=== PATIENT | female | born 1985 | race Two or more races ===

== ENCOUNTER 2021-05-29 14:17 | Emergency (ER) | payer MEDICAID ==
[~2021-05-29] VITALS: Ht 160 cm; Wt 81.6 kg
[2021-05-29 15:39] VITALS: BP 102/66
[2021-05-29] MEDS ORDERED: KETOROLAC TROMETH 60MG/2ML VIAL IM ONE (16:45)
[2021-05-29 17:29] LABS: Basophils # (auto) 0.1 10 ^3/uL (0-0.2); Basophils % (auto) 0.8 % (0.0-2.0); Eosinophils # (auto) 0.2 10 ^3/uL (0-0.8); Eosinophils % (auto) 2.2 % (0.0-7.0); Hematocrit 41.4 % (36.0-46.0); Hemoglobin 14.7 g/dL (12.2-16.2); Lymphocytes # (auto) 2.6 10 ^3/uL (0.4-5.4); Lymphocytes % (auto) 29.8 % (10.0-50.0); Mean Corpuscular Hemoglobin 33.7 pg (28.0-32.0); Mean Corpuscular Hgb Conc. 35.4 g/dL (32.0-36.0); Mean Corpuscular Volume 95.1 fL (80.0-100.0); Monocytes # (auto) 1.2 10 ^3/uL (0-1.3); Monocytes % (auto) 13.7 % (0.0-12.0); Neutrophils # (auto) 4.7 10 ^3/uL (1.6-8.6); Neutrophils % (auto) 53.5 % (37.0-80.0); Platelet Count (auto) 274 10^3/uL (140-450); Red Blood Cells 4.36 10^6/uL (4.0-5.20); Red Cell Distribution Width 12.8 % (11.8-14.3); White Blood Cell 8.8 10^3/uL (4.4-10.8)
[2021-05-29 17:41] LABS: Albumin 3.6 g/dL (3.4-5.0); Calcium 8.5 mg/dL (8.5-10.1); Potassium 3.9 mmol/L (3.5-5.1)
[2021-05-29 17:44] LABS: BUN/Creatinine Ratio 13.5; Bilirubin, Total 0.3 mg/dL (0.2-1.0); Total Protein 6.7 g/dL (6.4-8.2)
== END 2021-05-29 18:16 | disposition home or self-care (01) ==
LOC: ER 14:17
DX: J32.9 Chronic sinusitis, unspecified (principal); M54.9 Dorsalgia, unspecified; R42 Dizziness and giddiness
CPT/HCPCS: 36415; 80053; 85025; 85049; 96372; 99283; J1885

== ENCOUNTER 2024-09-04 12:30 | Emergency (ER) | payer MEDICAID ==
[~2024-09-04] VITALS: Ht 162.6 cm; Wt 95.5 kg
[2024-09-04 14:00] VITALS: BP 101/69; PULSE 101; RESP 16; O2SAT 97
[2024-09-04] MEDS ORDERED: AUG875T PO (14:57)
[2024-09-04] MEDS ORDERED: LIDO2SOL26 MT (14:57)
== END 2024-09-04 14:59 | disposition home or self-care (01) ==
LOC: ER 12:33
DX: H66.93 Otitis media, unspecified, bilateral (principal); J03.90 Acute tonsillitis, unspecified; Z98.890 Other specified postprocedural states; Z79.899 Other long term (current) drug therapy
CPT/HCPCS: 71045

== ENCOUNTER 2024-09-21 12:33 | Emergency (ER) | payer MEDICAID ==
[~2024-09-21] VITALS: Ht 162.6 cm; Wt 95.1 kg
[~2024-09-21 12:33] MED LIST: AUG875T PO; LIDO2SOL26 MT
[2024-09-21 13:15] LABS: Basophils # (auto) 0.1 10 ^3/uL (0-0.2); Eosinophils # (auto) 0.1 10 ^3/uL (0-0.8); Eosinophils % (auto) 2.2 % (0.0-7.0); Hematocrit 43.2 % (36.0-46.0); Hemoglobin 14.5 g/dL (12.2-16.2); Lymphocytes # (auto) 2.7 10 ^3/uL (0.4-5.4); Lymphocytes % (auto) 44.2 % (10.0-50.0); Mean Corpuscular Hemoglobin 31.8 pg (28.0-32.0); Mean Corpuscular Hgb Conc. 33.6 g/dL (32.0-36.0); Mean Corpuscular Volume 94.5 fL (80.0-100.0); Monocytes # (auto) 0.6 10 ^3/uL (0-1.3); Neutrophils # (auto) 2.6 10 ^3/uL (1.6-8.6); Neutrophils % (auto) 42.6 % (37.0-80.0); Nucleated Red Blood Cells % 0.1 %; Platelet Count (auto) 357 10^3/uL (140-450); Red Blood Cells 4.58 10^6/uL (4.0-5.20); Red Cell Distribution Width 13.3 % (11.8-14.3)
[2024-09-21 13:17] LABS: Chloride 109 mmol/L (98-107); Potassium 3.9 mmol/L (3.5-5.1); Sodium 139 mmol/L (136-145)
[2024-09-21 13:18] LABS: Anion Gap 7 (5-15); Carbon Dioxide 23 mmol/L (20-31)
[2024-09-21 13:19] LABS: Calcium 9.6 mg/dL (8.7-10.4)
[2024-09-21 13:23] LABS: Glucose 89 mg/dL (74-106)
[2024-09-21 13:24] LABS: BUN/Creatinine Ratio 15.9 (10.0-20.0); Blood Urea Nitrogen 11 mg/dL (9-23)
[2024-09-21 13:31] LABS: Urine Bacteria None Seen /hpf (None Seen)
[2024-09-21 13:49] LABS: Urine Blood 1+ /uL (Negative); Urine Clarity Clear (Clear); Urine Color Yellow (Yellow); Urine Mucus FEW (None Seen); Urine Protein, UAD Negative (Negative); Urine Specific Gravity 1.023 (1.001-1.035); Urine Urobilinogen Normal (Negative); Urine WBC <1 /hpf (0 - 5)
[2024-09-21 20:02] VITALS: BP 120/79; PULSE 99; RESP 18; TEMP 98.4; O2SAT 97
== END 2024-09-21 21:51 | disposition left against medical advice (07) ==
LOC: ER 12:33
DX: G45.9 Transient cerebral ischemic attack, unspecified (principal); Z98.51 Tubal ligation status
CPT/HCPCS: 36415; 80048; 81001; 85025; 99291

== ENCOUNTER 2025-06-20 21:31 | Emergency (ER) | payer MEDICAID ==
[~2025-06-20] VITALS: Ht 162.6 cm; Wt 95.8 kg
[2025-06-20] MEDS: KETOROLAC TROMETH 60MG/2ML VIAL IM ONE (22:00)
--- NOTE | 2025-06-20 22:08 | ED.PDOC ---
Musculoskeletal HPI Comments This patient is a significantly morbidly obese 40 year-old female who presents to the ED with a chief complaint of L arm inflammation with associated tingling, numbness, and headache for the past few days. Patient reports additional pain to bilateral arms as of X2 days ago. Patient has no further complaints at this time and otherwise denies further associated symptoms of dizziness, N/V, fatigue, fever, or chills. Vital signs were stable on arrival. Chief Complaint: Upper Extremity Time Seen by MD: 22:04 Primary Care Provider: Sunshine Navarrete Notes: Nurses Notes, Medications, Allergies Allergies: Coded Allergies: No Known Drug Allergy (Verified Allergy, Unknown, 05/29/21) Home Meds Active Scripts Gabapentin (Gabapentin) 300 Mg Cap, 1 CAP PO Q6HP PRN, #20 CAP 0 Refills Prov:LILIBETH CANNON PAC 06/21/25 Ibuprofen Micronized (Ibuprofen) 800 Mg Tab, 800 MG PO Q8HP PRN, #20 TAB Prov:LILIBETH CANNON PAC 06/21/25 Lidocaine HCl (Mouth-Throat) (Lidocaine HCl Viscous) 2 % Cornelia, 10 ML MT TID, #100 ML Prov:RUPINDER PEREZ 09/04/24 Amoxicillin & Pot Clavulanate (AUGMENTIN TABLET) 875 Mg Tb, 875 MG PO BID for 10 Days, #20 TAB Prov:RUPINDER PEREZ 09/04/24 Information Source: Patient Mode of Arrival: Ambulatory Location: Left Timing: Days Prehospital treatment: None Severity: Moderate Able to Move Extremity: Yes Bear Weight: Fully Pain: Moderate Hand Dominance: Right Mechanism: Unknown Circumstances: Spontaneous Onset of Symptoms: Spontaneous Symptoms: Swelling, Pain DVT Risk Factors: NONE Associated signs and symptoms: Other (L arm Inflimmation ) Past Medical History PAST MEDICAL HISTORY: Denies Surgical History: Tubal Ligation IT PROGRAM ENGAGEMENT DIRECTOR History: No Pertinent IT PROGRAM ENGAGEMENT DIRECTOR History Family History Family History: Reviewed,noncontributory to illness Social History Smoker: Non-Smoker Alcohol: Denies ETOH Use Drugs: Denies Drug Use Lives In: Home Constitutional: denies: chills, diaphoresis, fatigue, fever, malaise, sweats, weakness, others EENTM: denies: blurred vision, double vision, ear bleeding, ear discharge, ear drainage, ear pain, ear ringing, eye pain, eye redness, hearing loss, mouth pain, mouth swelling, nasal discharge, nose bleeding, nose congestion, nose pain, photophobia, tearing, throat pain, throat swelling, voice changes, others Respiratory: denies: cough, hemoptysis, orthopnea, SOB at rest, shortness of breath, SOB with excertion, stridor, wheezing, others Cardiovascular: denies: chest pain, dizzy spells, diaphoresis, Dyspnea on exertion, edema, irregular heart beat, left arm pain, lightheadedness, palpitati ons, PND, syncope, others Gastrointestinal: denies: abdomen distended, abdominal pain, blood streaked bowels, constipated, diarrhea, dysphagia, difficulty swallowing, hematemesis, melena, nausea, poor appetite, poor fluid intake, rectal bleeding, rectal pain, vomiting, others Genitourinary: denies: abnormal vagina bleeding, burning, dyspareunia, dysuria, flank pain, frequency, hematuria, incontinence, pain, , vagina discharge, urgency, others Neurological: reports: headache, numbness, tingling (Left hand and part of the left arm), others (L arm Inflimmation ); denies: dizziness, fainting, left sided numbness, left sided weakness, paresthesia, pre-existing deficit, right sided numbness, right sided weakness, seizure, speech problems, tremors, weakness Musculoskeletal: denies: back pain, gout, joint pain, joint swelling, muscle pain, muscle stiffness, neck pain, others Integumetry: denies: bruises, change in color, change in hair/nails, dryness, laceration, lesions, lumps, rash, wounds, others Allergic/Immunocompromised: denies: Difficulty Healing, Frequent Infections, Hives, Itching, others Hematologic/Lymphatic: denies: anemia, blood clots, easy bleeding, easy bruising, swollen glands, others Endocrine: denies: excessive hunger, excessive sweating, excessive thirst, excessive urination, flushing, intolerance to cold, intolerance to heat, unexplained weight gain, unexplained weight loss, others Psychiatric: denies: anxiety, bipolar disorder, depression, hopeless, panic disorder, schizophrenia, sleepless, suicidal, others All Other Systems: Reviewed and Negative Physical Exam General Appearance: Moderate Distress ([id number] her neuropathic pain concerns.), Obese HEENT: Normal ENT Inspection, Pharynx Normal, TMs Normal Neck: Full Range of Motion, Non-Tender, Normal, Normal Inspection Respiratory: Chest Non-Tender, Lungs Clear, No Accessory Muscle Use, No R espiratory Distress, Normal Breath Sounds Cardiovascular: No Edema, No JVD, No Murmur, No Gallop, Normal Peripheral Pulses, Regular Rate/Rhythm Breast Exam: Deferred Gastrointestinal: No Organomegaly, Non Tender, No Pulsatile Mass, Normal Bowel Sounds, Soft Genitalia: Deferred Pelvic: Deferred Rectal: Deferred Extremities: Other (Musculoskeletal evaluation was unremarkable. No signs of trauma. Full range of motion displayed. Distal neurovascularly intact.) Neurologic: Alert, No Motor Deficits, Normal Affect, Normal Mood, No Sensory Deficits Cerebellar Function: NOT DONE Reflexes: NOT DONE Skin: Dry, Normal Color, Warm Lymphatic: No Adenopathy Was a procedure done? Was a procedure done?: No Differential Diagnosis EXT Differential Diagnosis: Fracture, Sprain, Contusion, Strain, Arthritis, Other (Peripheral neuropathy, degenerative disc disease of the cervical spine, cervical radiculopathy) X-Ray, Labs, Meds, VS Vital Signs Date Time Temp Pulse Resp B/P (MAP) Pulse Ox O2 Delivery O2 Flow Rate FiO2 06/20/25 22:28 98.1 77 18 127/82 (97) 95 98.1 Lab Test 06/20/25 22:37 06/20/25 22:10 Range/Units Urine Color Light-yellow Yellow Urine Clarity Turbid H Clear Urine pH 6.5 5.0-9.0 Urine Specific [place] 1.028 1.001-1.035 Urine Protein Trace H Negative Urine Ketones Negative Negative Urine Blood Negative Negative /uL Urine Nitrite Negative Negative Urine Bilirubin Negative Negative Urine Urobilinogen Normal Negative mg/dL Urine Leukocyte Esterase Negative Negative /uL Urine RBC 3 0 - 4 /hpf Urine Microscopic WBC 3 0-5 /HPF Urine Squamous Epithelial Cells Mod <5 /hpf Urine Bacteria Few H None Seen /hpf Urine Mucus Few None Seen Urine Glucose Normal Normal mg/dL White Blood Count 7.2 4.4-10.8 10^3/uL Red Blood Count 4.44 4.0-5.20 10^6/uL Hemoglobin 14.2 12.2-16.2 g/dL Hematocrit 41.0 36.0-46.0 % Mean Corpuscular Volume 92.2 80.0-100.0 fL Mean Corpuscular Hemoglobin 32.0 28.0-32.0 pg Mean Corpuscular Hemoglobin Concent 34.7 32.0-36.0 g/dL Red Cell Distribution Width 13.3 11.8-14.3 % Platelet Count 342 140-450 10^3/uL Mean Platelet Volume 7.5 6.9-10.8 fL Neutrophils (%) (Auto) 44.2 37.0-80.0 % Lymphocytes (%) (Auto) 43.1 10.0-50.0 % Monocytes (%) (Auto) 8.8 0.0-12.0 % Eosinophils (%) (Auto) 2.8 0.0-7.0 % Basophils (%) (Auto) 1.1 0.0-2.0 % Neutrophils # (Auto) 3.2 1.6-8.6 10 ^3/uL Lymphocytes # (Auto) 3.1 0.4-5.4 10 ^3/uL Monocytes # (Auto) 0.6 0-1.3 10 ^3/uL Eosinophils # (Auto) 0.2 0-0.8 10 ^3/uL Basophils # (Auto) 0.1 0-0.2 10 ^3/uL Nucleated Red Blood Cells 0.1 % Sodium Level 142 136-145 mmol/L Potassium Level 3.7 3.5-5.1 mmol/L Chloride Level 108 H 98-107 mmol/L Carbon Dioxide Level 24 20-31 mmol/L Anion Gap 10 5-15 Blood Urea Nitrogen 8 L 9-23 mg/dL Creatinine 0.72 0.550-1.02 mg/dL Glomerular Filtration Rate Calc 107 >90 mL/min BUN/Creatinine Ratio 11.1 10.0-20.0 Serum Glucose 89 74-106 mg/dL Calcium Level 9.2 8.7-10.4 mg/dL Lipase 47 12-53 U/L Current Medications Medications (Trade) Dose Ordered Sig/Armen Route Start Time Stop Time Status Last Admin Dexamethasone Sodium Phosphate (Decadron Injection) 10 mg ONCE ONCE IM 06/20/25 22:00 06/20/25 22:02 DC 06/20/25 22:00 Ketorolac Tromethamine (Toradol Injection) 30 mg ONCE ONCE IM 06/20/25 22:00 06/20/25 22:02 NC 06/20/25 22:00 [facility] [id number] [facility] [id number] Ph: [phone] DIAGNOSTIC IMAGING Diagnostic Imaging Report : [id number] Signed PATIENT: KASSIE CHOUDHARY ACCT: [id number] UNIT: [id number] : 1985 LOC: ER ROOM / BED: / AGE / SEX: 40 / F ADM STATUS: REG ER SERVICE 99 ORDERING PHYSICIAN: LILIBETH CANNON PAC PROCEDURE(s): CERV2 - CERVICAL SPINE 3V REASON: Cervical radiculopathy ORDER NUMBER(s): [id number], ACCESSION NUMBER(s): [id number] INDICATION: Cervical radiculopathy TECHNIQUE: AP lateral, and odontoid radiographs of the cervical spine. COMPARISON: None FINDINGS: On the lateral radiograph there is adequate visualization down to the upper C7 vertebral body. No prevertebral soft tissue abnormality noted. Straightening of the normal cervical lordosis; the alignment is otherwise unremarkable with no listhesis. The cervical vertebral bodies appear unremarkable. The intervertebral disc spaces are preserved. Facet joints appear unremarkable. IMPRESSION: No abnormality demonstrated. X-Ray, Labs, Meds, VS Comment All studies performed the ED were evaluated by me personally. Serum and urine studies were unremarkable for any systemic concerns. Imaging studies of the cervical spine were relatively unremarkable for any degenerative disc disease. Some mild straightening noted. Advised patient follow up with the primary care provider for discussions related to today's visit and long-term management of her peripheral neuropathy issues. Time of 1ST Reevaluation: 00:00 Reevaluation 1ST: Improved Consultation: PCP Patient Education/Counseling: Diagnosis, Treatment Family Education/Counseling: Diagnosis, Treatment, No Family Present Sepsis Recent Procedure: No On Antibiotic Therapy: No Respiratory Rate >20: No Heart Rate >90: No Temp<36 C (96.8 F) or >38.3 C: No SBP <90 or MAP <65 mmHG: No New Acute Mental Status Change: No Is the patient on CPAP, BIPAP,: No IV fluid given: No Departure 1 Departure Time of Disposition: 00:01 Impression: Primary Impression: Peripheral neuropathy Disposition: 01 HOME / SELF CARE / HOMELESS Condition: Stable Additional Instructions: Advised patient follow up with the primary care provider as needed for concerns related to her peripheral neuropathy if they do not resolve in the next few days. Advised medication as needed for symptomatic relief. e-Prescriptions Tramadol Hcl (Tramadol Hcl) 50 Mg Tab 50 MG PO Q6HP PRN, #15 TAB Prov: LILIBETH CANNON PAC 06/21/25 Ibuprofen Micronized (Ibuprofen) 800 Mg Tab 800 MG PO Q8HP PRN, #20 TAB Prov: LILIBETH CANNON PAC 06/21/25 Discharged With: Self, Friend Critical Care Note Critical Care Time?: No Stability Stability form required: No Heart Score Heart Score: Heart Score Response (Comments) Value History N/A 0 EKG N/A 0 Age N/A 0 Risk Factors N/A 0 Troponin N/A 0 Total 0 I personally scribed for LILIBETH CANNON PAC ([email or web address]) on 06/20/25 at 22:08. Electronically submitted by Cady Mosley ([email or web address]). I personally scribed for LILIBETH CANNON PAC ([email or web address]) on 06/20/25 at 23:41. Electronically submitted by Cady Mosley ([email or web address]). LILIBETH CANNON PAC Jun 20, 2025 22:08
[2025-06-20 22:31] LABS: Hematocrit 41.0 % (36.0-46.0); Hemoglobin 14.2 g/dL (12.2-16.2); Mean Corpuscular Hemoglobin 32.0 pg (28.0-32.0); Mean Corpuscular Volume 92.2 fL (80.0-100.0); Nucleated Red Blood Cells % 0.1 %
[2025-06-20 22:34] LABS: Potassium 3.7 mmol/L (3.5-5.1); Sodium 142 mmol/L (136-145)
[2025-06-20 22:35] LABS: Anion Gap 10 (5-15); Carbon Dioxide 24 mmol/L (20-31)
[2025-06-20 22:36] LABS: Calcium 9.2 mg/dL (8.7-10.4)
[2025-06-20 22:37] LABS: Chloride 108 mmol/L (98-107)
[2025-06-20 22:41] LABS: BUN/Creatinine Ratio 11.1 (10.0-20.0); Lipase 47 U/L (12-53)
[2025-06-20 22:43] LABS: Blood Urea Nitrogen 8 mg/dL (9-23)
[2025-06-20 22:50] LABS: Urine Protein, UAD TRACE (Negative)
--- NOTE | 2025-06-20 22:58 | DVH ---
INDICATION: Cervical radiculopathy TECHNIQUE: AP lateral, and odontoid radiographs of the cervical spine. COMPARISON: None FINDINGS: On the lateral radiograph there is adequate visualization down to the upper C7 vertebral body. No pre vertebral soft tissue abnormality noted. Straightening of the normal cervical lordosis; the alignment is otherwise unremarkable with no listhesis. The cervical vertebral bodies appear unremarkable. The intervertebral disc spaces are preserved. Facet joints appear unremarkable. IMPRESSION: No abnormality demonstrated.
[2025-06-20 23:07] LABS: Glucose 89 mg/dL (74-106)
[2025-06-21] MEDS ORDERED: IBUP-1455 PO (00:02)
[2025-06-21] MEDS ORDERED: GABA-1250 PO (00:02)
[2025-06-21] MEDS ORDERED: TRAM50TA2 PO (00:32)
[2025-06-21 00:37] VITALS: BP 120/77; PULSE 77; RESP 19; TEMP 98.2; O2SAT 98
== END 2025-06-21 00:37 | disposition home or self-care (01) ==
LOC: ER 21:31
DX: G62.9 Polyneuropathy, unspecified (principal); Z98.51 Tubal ligation status; E66.01 Morbid (severe) obesity due to excess calories; Z79.899 Other long term (current) drug therapy; Z68.36 Body mass index [BMI] 36.0-36.9, adult
CPT/HCPCS: 36415; 72040; 80048; 81001; 83690; 85025; 96372; 99284; J1100; J1885